=== PATIENT | male | born 1995 | race African-American/Black ===

== ENCOUNTER 2023-11-27 21:19 | Emergency (ER) | payer BC ==
--- OUTSIDE RECORDS SUMMARY | 2023-11-27 21:23 | XMS REPORT | Continuity of Care Document ---
Author Name Unknown Address [address] [facility] [address] [place] [address] [facility] thconnect Address [address] [place] [address] Care Team Providers Care Environmental Compliance Manager Name Role Phone UNKNOWN, REFFERING Primary Care Physician Unavai lable Encounters Start Date/Time End Date/Time Encounter Type Admission Type Attending Clinicians Care Facility Care Department Encounter ID Source 2017-04-24 11:41:00 2017-04-24 11:41:00 Emergency E [facility] MED [id number] [facility] Results Test Description Test Time Test Comments Results Resul t Comments Source CT CERVICAL SPINE LTD W/O CONTRAS 2017-04-24 15:22:19 Dictation location: R16CT cervical spine without contrastClinical indication: MVAComparison: none availableTechnique: Multidetector noncontrast slices through the cervical spinewere obtained without intravenous contrast and sagittal and coronalreformatting performed.One or more of the following dose reduction techniques were used:Automated exposure control, adjustment of the mA and/or kV according topatient size, and/or utilization of iterative reconstruction technique. Findings:The bony cervical canal is intact with no evidence of cervical spinefracture.There is normal vertebral body alignment and vertebral body height.No disc space narrowing is present.No soft tissue swelling is present. There is a normal diameter spinal canal with no significant spinal orneuroforaminal stenosis.Impression: No evidence of cervical spine fracture. XR SPINE CERVICAL 2-3V 2017-04-24 14:38:25 EXAMINATION: CERVICAL SPINE 3 VIEWSINDICATION: MVA-PainCOMPARISON: None availableTECHNIQUE: AP, open-mouth and lateral radiograph were obtained of thecervical spine. FINDINGS: 7 cervical vertebral bodies are seen on the lateral image. Theatlantoaxial and atlantooccipital articulations are normal. Thevertebral bodies are normal in height, density and alignment. The facetjoints and spinous processes are in normal alignment. The intervertebraldiscs are normal in height. The prevertebral soft tissues are normal.IMPRESSION:No acute osseous abnormality of the cervical spine.LOCATION: R16 XR SPINE, THORACIC 2V 2017-04-24 12:45:43 EXAM: XR THORACIC SPINE 3 VIEWSINDICATION: MVCCOMPARISON: None availableTECHNIQUE: AP, swimmer's and lateral radiographs of the thoracic spineDISCUSSION: The vertebral bodies are normal in height, alignment and density. Thefacet joints and spinous processes are normal alignment. Theintervertebral disc spaces are normal. No osseous lesions areidentified. No soft tissue abnormality is identified.IMPRESSION:No acute abnormality of the thoracic spine.LOCATION: R 16 XR SPINE LUMBAR 2-3V 2017-04-24 12:38:27 LUMBAR SPINE SERIES, 3 VIEWSCLINICAL INFORMATION: MVA-PainCOMPARISON: NoneFINDINGS:AP, lateral, and spot lateral images of the lumbar spine were obtained.No fracture or malalignment is identified. The vertebral body heightsand disc spaces are maintained. The sacrum appears grossly intact. Thesoft tissues are unremarkable.IMPRESSION: No lumbar fracture or malalignment is identified.Location: R16
[2023-11-27] MEDS ORDERED: KETOROLAC 30 MG/ML INJ ONE (22:11)
[2023-11-27] MEDS ORDERED: ONDANSETRON 4 MG/2 ML VIAL ONE (22:11)
[2023-11-27] MEDS ORDERED: NA CHLORIDE 0.9% 1,000 ML ONE (22:11)
[2023-11-27 22:31] LABS: Absolute Eosinophils 0.2 K/uL (0-0.5); Absolute Lymphocytes (CBC) 2.9 K/uL (0.7-4.9); Absolute Monocytes 0.5 K/uL (0.1-1.3); Absolute Neutrophil 4.2 K/uL (1.8-8.0); Basophils % 0.4 % (0-1.3); Eosinophils % 2.3 % (0-4.4); Hematocrit 41.6 % (39.6-49.0); Hemoglobin 13.7 g/dL (13.6-17.9); Lymphocytes % 37.2 % (15.3-44.8); MCH 29.7 pg (27.0-35.0); MCV 90.2 fL (80-100); MPV 7.5 fL (7.6-11.3); Monocytes % 6.7 % (3.3-12.3); Neutrophils % 53.4 % (41.7-73.7); Nucleated Red Blood Cells % 0.4 % (0-0); Platelets 277 thou/uL (152-406); RBC Red Blood Cell Count 4.61 M/uL (4.33-5.43); Red Cell Distribution Width 13.5 % (12.1-15.2)
[2023-11-27 22:45] LABS: Specific Gravity 1.026 (1.005-1.030); Urine Bilirubin NEGATIVE (Negative); Urine Blood Negative (Negative); Urine Clarity Clear (Clear); Urine Color Light-Yellow (Yellow); Urine Glucose NEGATIVE (Negative); Urine Ketones NEGATIVE (Negative); Urine Microscopic Reflex YN NO UMIC; Urine Nitrite NEGATIVE (Negative); Urine Protein NEGATIVE (Negative); Urine Urobilinogen 1+ (Normal)
[2023-11-27 22:51] LABS: Albumin 3.5 g/dL (3.4-5.0); Albumin/Globulin Ratio 0.9 (1.1-1.8); Anion Gap 8.5 mEq/L (5.0-15.0); Bilirubin Total 0.2 mg/dL (0.2-1.0); Globulin 3.8 g/dL (2.3-3.5); Potassium 3.5 mEq/L (3.5-5.1); Protein, Total 7.3 g/dL (6.4-8.2)
--- NOTE | 2023-11-28 01:11 | ER ---
Nurse's Notes [facility] Name: Mikey Huynh Age: 28 yrs Sex: Male : 1995 Arrival Date: 11/27/2023 Time: 21:19 Bed 16 Private MD: Diagnosis: Abdominal pain, unspecified;Diarrhea, unspecified Presentation: 11/26 21:36 Chief complaint: Patient states: LUQ pain starting Friday morning. Has also been tm6 having diarrhea, dizziness and nausea. Coronavirus screen: Vaccine status: Patient reports receiving the 2nd dose of the covid vaccine. Ebola Screen: Patient negative for fever greater than or equal to 101.5 degrees Fahrenheit, and additional compatible Ebola Virus Disease symptoms Patient denies exposure to infectious person. Patient denies travel to an Ebola-affected area in the 21 days before illness onset. No symptoms or risks identified at this time. Initial Sepsis Screen: Does the patient meet any 2 criteria? No. Patient's initial sepsis screen is negative. Does the patient have a suspected source of infection? No. Patient's initial sepsis screen is negative. Risk Assessment: Do you want to hurt yourself or someone else? Patient reports no desire to harm self or others. Onset of symptoms was November 26, 2023. 21:36 Method Of Arrival: Ambulatory tm6 21:36 Acuity: NATHALIE 3 tm6 Triage Assessment: 21:38 General: Appears in no apparent distress. Behavior is calm, cooperative. Pain: tm6 Complains of pain in left upper quadrant Pain does not radiate. Pain currently is 6 out of 10 on a pain scale. Pain began 1 day ago. Also complains of nausea. EENT: No signs and/or symptoms were reported regarding the EENT system. Neuro: Level of Consciousness is awake, alert, obeys commands, Oriented to person, place, time, situation. Neuro: Reports dizziness, since yesterday. Cardiovascular: Patient's skin is warm and dry. Respiratory: Airway is patent Respiratory effort is even, unlabored, Respiratory pattern is regular, symmetrical. GI: Abdomen is round Reports upper abdominal pain, diarrhea, nausea. : No signs and/or symptoms were reported regarding the genitourinary system. Derm: No signs and/or symptoms reported regarding the dermatologic system. Musculoskeletal: No signs and/or symptoms reported regarding the musculoskeletal system. Historical: - Allergies: 21:38 No Known Allergies; tm6 - PMHx: 21:38 None; tm6 - PSHx: 21:38 None; tm6 - Immunization history:: Client reports receiving the 2nd dose of the Covid vaccine. - Infectious Disease History:: Denies. - Social history:: Smoking status: Patient denies any tobacco usage or history of. Patient uses alcohol, occasionally. Screenin:00 [facility] ED Fall Risk Assessment (Adult) History of falling in the last 3 months, jj7 including since admission No falls in past 3 months (0 pts) Confusion or Disorientation No (0 pts) Intoxicated or Sedated No (0 pts) Impaired Gait No (0 pts) Mobility Assist Device Used No (0 pt) Altered Elimination No (0 pt) Score/Fall Risk Level 0 - 2 = Low Risk Oriented to surroundings, Maintained a safe environment, Educated pt \T\ family on fall prevention, incl call for assistance when getting out of bed, Assessed \T\ reinforced patient's understanding of fall precautions. Abuse screen: Denies threats or abuse. Nutritional screening: No deficits noted. Tuberculosis screening: No symptoms or risk factors identified. Assessment: 22:00 General: Appears in no apparent distress. comfortable, Behavior is calm, cooperative, jj7 appropriate for age. Pain: Complains of pain in left upper quadrant and left lower quadrant Pain currently is 6 out of 10 on a pain scale. GI: Bowel sounds present X 4 quads. Abd is soft and non tender Reports lower abdominal pain, upper abdominal pain, nausea. Vital Signs: 21:36 BP 163 / 100; Pulse 86; Resp 19; Temp 98.2(O); Pulse Ox 97% on R/A; Weight 145.15 kg; tm6 Height 6 ft. 5 in. ; Pain 6/10; 22:30 BP 150 / 91; Pulse 77; Resp 17; Pulse Ox 99% ; jj7 23:39 BP 172 / 99; Pulse 79; Resp 19; Pulse Ox 98% ; jj7 11/27 00:51 BP 148 / 89; Pulse 68; Resp 16; Pulse Ox 97% ; jj7 01:52 BP 139 / 79; Pulse 74; Resp 16; Temp 97.6; Pulse Ox 97% ; Pain 0/10; jj7 11/26 21:36 Body Mass Index 37.95 (145.15 kg, 195.58 cm) tm6 11/26 21:36 Pain Scale: Adult tm6 01:52 Pain Scale: Adult jj7 ED Course: 11/26 21:26 Patient arrived in ED. gm2 21:28 Holden Martinez PA is PHCP. cp 21:28 Sean Strickland MD is Attending Physician. cp 21:38 Triage completed. tm6 21:38 Arm band placed on right wrist. tm6 22:00 Patient has correct armband on for positive identification. Bed in low position. Call jj7 light in reach. Side rails up X 1. Provided Education on: USE OF CALL GARCIA. 22:08 Chaitanya Young, JOHN is Primary Nurse. jj7 22:19 Inserted saline lock: 20 gauge in left hand, using aseptic technique. Blood collected. jj7 Flushed with 10 mL NS. 22:23 CBC with Diff Sent. jj7 22:23 CMP Sent. jj7 22:23 Lipase Sent. jj7 22:23 Urinalysis w/ reflexes Sent. jj7 23:52 Inserted saline lock: 20 gauge in right forearm, using aseptic technique. Flushed with jj7 10 mL NS. 23:52 IV discontinued, intact, bleeding controlled, No redness/swelling at site. Pressure jj7 dressing applied, 20G FROM HAND PT WANTED IT REMOVED. 11/27 00:05 CT Abd/Pelvis - IV Contrast Only In Process Unspecified. EDMS 01:54 No provider procedures requiring assistance completed. IV discontinued, intact, jj7 bleeding controlled, No redness/swelling at site. Pressure dressing applied. Administered Medications: 11/26 22:22 Drug: NS 0.9% IV 1000 ml IV at 1 bolus Per protocol; 1000 mL bolus Route: IV; Rate: 1 jj7 bolus; Site: left hand; 23:49 Follow up: IV Status: Completed infusion jj7 22:23 Drug: TORadol - Ketorolac IVP 15 mg IVP once Route: IVP; Site: left hand; jj7 23:48 Follow up: Response: Marked relief of symptoms; Pain is decreased jj7 22:23 Drug: Ondansetron IVP 4 mg IVP once; over 2 minutes Route: IVP; Site: left hand; jj7 23:46 Follow up: Response: Nausea is decreased 7 Medication: 22:00 VIS not applicable for this client. jj7 Outcome: 11/27 01:10 Discharge ordered by . tristan 01:54 Discharged to home ambulatory, jj7 01:54 Condition: improved 01:54 Discharge instructions given to patient, Instructed on discharge instructions, medication usage, Demonstrated understanding of instructions, medications, Prescriptions given X 2, 01:54 Patient left the ED. jj7 Signatures: Dispatcher [employer] EDMS Holden Martinez PA PA cp Johnson, Juwairiyah, RN RN jj7 Glenys Lopez gm2 Belkis Chavira RN RN tm6
--- NOTE | 2023-11-28 01:11 | EDPHYS ---
Physician Documentation [facility] Name: Mikey Huynh Age: 28 yrs Sex: Male : 1995 Arrival Date: 11/27/2023 Time: 21:19 Bed 16 Private MD: ED Physician Sean Strickland HPI: 11/26 22:00 This 28 yrs old Black Male presents to ER via Ambulatory with complaints of Abdominal cp Pain, Fever. 22:00 The patient presents with abdominal pain left side of abdomen. Onset: The cp symptoms/episode began/occurred yesterday, and became worse today. The symptoms radiate to left chest area. Associated signs and symptoms: Pertinent positives: diarrhea, fever, Pertinent negatives: blood in stools, shortness of breath, vomiting. The symptoms are described as crampy, waxing/waning. Historical: - Allergies: 21:38 No Known Allergies; tm6 - PMHx: 21:38 None; tm6 - PSHx: 21:38 None; tm6 - Immunization history:: Client reports receiving the 2nd dose of the Covid vaccine. - Infectious Disease History:: Denies. - Social history:: Smoking status: Patient denies any tobacco usage or history of. Patient uses alcohol, occasionally. ROS: 22:05 Constitutional: Negative for fever, poor PO intake, cp 22:05 Eyes: Negative for injury, pain, redness, and discharge, cp 22:05 ENT: Negative for drainage from ear(s), ear pain, sore throat, difficulty swallowing, difficulty handling secretions, 22:05 Respiratory: Negative for cough, wheezing, 22:05 Abdomen/GI: Positive for abdominal pain, diarrhea, Negative for vomiting, constipation, black/tarry stool, rectal bleeding, 22:05 Neuro: Negative for altered mental status, headache, weakness, 22:05 All other systems are negative, Exam: 22:10 Constitutional: The patient appears in no acute distress, alert, awake, non-toxic, well cp developed, well nourished, 22:10 Head/Face: Normocephalic, atraumatic. cp 22:10 Eyes: Periorbital structures: appear normal, Conjunctiva: normal, no exudate, no injection, Sclera: no appreciated abnormality, Lids and lashes: appear normal, bilaterally, 22:10 ENT: External ear(s): are unremarkable, Nose: is normal, Mouth: Lips: moist, Oral mucosa: pink and intact, moist, Posterior pharynx: Airway: no evidence of obstruction, patent, 22:10 Chest/axilla: Inspection: normal, 22:10 Cardiovascular: Rate: normal, Rhythm: regular, 22:10 Respiratory: the patient does not display signs of respiratory distress, Respirations: normal, no use of accessory muscles, no retractions, Breath sounds: are clear throughout, no decreased breath sounds, no stridor, no wheezing, 22:10 Abdomen/GI: Inspection: abdomen appears normal, Bowel sounds: active, all quadrants, Palpation: soft, in all quadrants, mild abdominal tenderness, in the anterior aspect of left lateral abdomen, posterior aspect of left lateral abdomen, left upper quadrant and left lower quadrant, rebound tenderness, is not appreciated, involuntary guarding, is not appreciated, 22:10 Back: CVA tenderness, is absent, cp 22:10 Neuro: Orientation: to person, place \T\ time. Mentation: is normal, Motor: moves all cp fours, strength is normal, Sensation: is normal, Vital Signs: 21:36 BP 163 / 100; Pulse 86; Resp 19; Temp 98.2(O); Pulse Ox 97% on R/A; Weight 145.15 kg; tm6 Height 6 ft. 5 in. ; Pain 6/10; 22:30 BP 150 / 91; Pulse 77; Resp 17; Pulse Ox 99% ; jj7 23:39 BP 172 / 99; Pulse 79; Resp 19; Pulse Ox 98% ; j7 11/27 00:51 BP 148 / 89; Pulse 68; Resp 16; Pulse Ox 97% ; jj7 01:52 BP 139 / 79; Pulse 74; Resp 16; Temp 97.6; Pulse Ox 97% ; Pain 0/10; jj7 11/26 21:36 Body Mass Index 37.95 (145.15 kg, 195.58 cm) tm6 11/26 21:36 Pain Scale: Adult tm6 01:52 Pain Scale: Adult j7 MDM: 11/26 21:28 Patient medically screened. cp 22:00 Differential diagnosis: diverticulitis, gastritis, non-specific abd pain, pancreatitis, cp Testicular Torsion, Ureterolithiasis, urinary tract infection. 11/27 01:10 Data reviewed: vital signs, nurses notes, lab test result(s), radiologic studies, CT cp scan, and as a result, I will discharge patient. 01:10 I considered the following discharge prescriptions or medication management in the emergency department Medications were administered in the Emergency Department. See MAR. Counseling: I had a detailed discussion with the patient and/or guardian regarding the historical points, exam findings, and any diagnostic results supporting the discharge/admit diagnosis, lab results, radiology results, to return to the emergency department if symptoms worsen or persist or if there are any questions or concerns that arise at home. Special discussion: Based on the patient's Hx, exam, and Dx evaluation, there is no indication for emergent surgery or inpatient Tx. It is understood by the patient/guardian that if the Sx's persist or worsen they need to return immediately for re-evaluation. 11/26 21:53 Order name: CBC with Diff; Complete Time: 23:12 11/26 21:53 Order name: CMP; Complete Time: 23:12 11/26 21:53 Order name: Lipase; Complete Time: 23:12 11/26 21:53 Order name: Urinalysis w/ reflexes; Complete Time: 23:12 11/26 23:13 Order name: CT Abd/Pelvis - IV Contrast Only 11/26 21:53 Order name: IV Saline Lock; Complete Time: 22:23 11/26 21:53 Order name: Labs collected and sent; Complete Time: 22:23 Administered Medications: 11/26 22:22 Drug: NS 0.9% IV 1000 ml IV at 1 bolus Per protocol; 1000 mL bolus Route: IV; Rate: 1 jj7 bolus; Site: left hand; 23:49 Follow up: IV Status: Completed infusion jj7 22:23 Drug: TORadol - Ketorolac IVP 15 mg IVP once Route: IVP; Site: left hand; jj7 23:48 Follow up: Response: Marked relief of symptoms; Pain is decreased jj7 22:23 Drug: Ondansetron IVP 4 mg IVP once; over 2 minutes Route: IVP; Site: left hand; jj7 23:46 Follow up: Response: Nausea is decreased jj7 Disposition: 11/27 02:28 Co-signature as Attending Physician, Sean Strickland MD I agree with the assessment sp4 and plan of care. I reviewed the patient's care provided by the Advanced Practice Provider and agree with the diagnosis and treatment plan. Disposition Summary: 11/28/23 01:10 Discharge Ordered Notes: Location: Home cp Problem: new cp Symptoms: have improved cp Condition: Stable cp Diagnosis - Abdominal pain, unspecified cp - Diarrhea, unspecified cp Followup: cp - With: Private Physician - When: 2 - 3 days - Reason: Worsening of condition Discharge Instructions: - Discharge Summary Sheet cp - Abdominal Pain, Adult cp - Food Choices to Help Relieve Diarrhea, Pediatric cp - Diarrhea, Adult cp Forms: - Medication Reconciliation Form cp - Antibiotic Education cp - Prescription Opioid Use cp - Patient Portal Instructions cp - Leadership Thank You Letter cp - Work release form jj7 Prescriptions: - Zofran 4 mg Oral Tablet - take 1 tablet ORAL route every 12 hours As needed; 20 tablet; Refills: 0, cp Product Selection Permitted - dicyclomine 20 mg Oral tablet - take 1 tablet ORAL route 4 times per day; 30 tablet; Refills: 0, Product cp Selection Permitted Signatures: Dispatcher [employer] EDMS Holden Martinez PA PA cp Johnson, Juwairiyah, RN RN jj7 Sean Strickland MD MD sp4 Belkis Chavira RN RN tm6 Corrections: (The following items were deleted from the chart) 11/26 21:53 21:53 Abdomen Pelvis W Con+CT.RAD.BRZ ordered. EDMS EDMS 21:53 21:53 CBC+H.LAB.BRZ ordered. EDMS EDMS 21:53 21:53 COMPREHENSIVE METABOLIC PANEL+C.LAB.BRZ ordered. EDMS EDMS 21:53 21:53 LIPASE+C.LAB.BRZ ordered. EDMS EDMS 21:53 21:53 Urinalysis+U.LAB.BRZ ordered. EDMS EDMS
[2023-11-28 02:26] VITALS: O2SAT 97
[2023-11-28 02:28] VITALS: BP 139/79; TEMP 97.6
--- NOTE | 2023-11-29 19:44 | RAD REPORT ---
EXAM DESCRIPTION: CT - Abdomen Pelvis W Contrast - 11/28/2023 6:52 am CLINICAL HISTORY: 28 years Male Left side abdomen pain. COMPARISON: None. TECHNIQUE: Images were obtained in axial, coronal and sagittal planes. Intravenous contrast administ ration. This exam was performed according to our departmental dose-optimization program which include s use of Automated Exposure Control, adjustment of the mA and/or kV according to patient size and/or use of iterative reconstruction technique. FINDINGS: No abnormality involving the liver, spleen, pancreas, gallbladder, and adrenal glands bila terally No obstructing renal or ureteral calculi bilaterally. No hydronephrosis bilaterally. Unremarkable alexis dder. Appendix within normal limits. No bowel obstruction, perforation, or inflammation. No acute osseous abnormality. No abnormality lower lungs bilaterally. No dilatation of abdominal aorta. Unremarkable portal vein. No adenopathy or abnormal fluid collectio ns seen. IMPRESSION: No acute intra-abdominal abnormality. Electronically signed by: Lissett Diehl MD 11/28/2023 12:42 AM CDT RP Due to temporary technical issues with the PACS/Fluency reporting system, reports are being signed by the in house radiologists without review as a courtesy to insure prompt reporting. The interpreting radiologist is fully responsible for the content of the report.
== END 2023-11-28 01:54 | disposition home or self-care (01) ==
LOC: ER 21:19
DX: R10.32 Left lower quadrant pain (principal); R19.7 Diarrhea, unspecified
CPT/HCPCS: 96361; 85025; 36415; 81003; 83690; 80053; 74177; 96375; 96374; 99284; Q9967; J2405; J7030